=== PATIENT | female | born 1925 | race Caucasian/White ===

== ENCOUNTER → 2016-07-20 | Outpatient (CLI) | payer OTHER ==
[~2016-07-20] MED LIST: ERGO1CAP35 PO; GLC500 PO; KFL500 PO; ROSU5TAB PO
--- NOTE | 2016-07-20 10:13 | DIAGNOSTIC IMAGING REPORT ---
RIGHT KNEE 1 OR 2 VIEWS ROUTINE CLINICAL HISTORY: M19.90,M25.561 RIGHT KNEE PAIN Right pain COMPARISON: None. DISCUSSION: Severe degenerative change medial joint compartment. Moderate degenerative change patellofemoral joint. 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 Lateral joint compartment generally well preserved. Soft tissue vascular calcifications. There is no evidence for soft tissue swelling. 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 Electronically signed by: Juan Osman M.D. 07/20/2016 10:11 AM Dictated Date/Time: 07/20/2016 10:11 AM
== END | disposition home or self-care (01) ==
LOC: C.RADBC 09:42
PROVIDERS: ATTEND Nurse Practitioner
DX: M25.561 Pain in right knee (principal); M17.11 Unilateral primary osteoarthritis, right knee

== ENCOUNTER 2016-10-21 17:04 | Inpatient (IN) | payer OTHER ==
[~2016-10-21] VITALS: Ht 160 cm; Wt 25.4 kg
[~2016-10-21 17:04] MED LIST changes: -KFL500 PO
[2016-10-21] MEDS ORDERED: SODIUM CHLORIDE 0.9% 1000ML 1,000 ML IV STA (17:30)
--- NOTE | 2016-10-21 17:47 | DIAGNOSTIC IMAGING REPORT ---
CHEST ONE VIEW PORTABLE CLINICAL HISTORY: Weakness COMPARISON STUDY: No previous studies for comparison. FINDINGS: The heart is normal in size. There is no lobar consolidation. There are no pleural effusions. There is mild interstitial thickening with a slight basilar predominance. This is age-indeterminate. Increased markings in the right suprahilar region, likely representing a summation with the right first costochondral cartilage.[ IMPRESSION: AP portable study. Mild interstitial thickening, finding of uncertain chronicity. No evidence of lobar consolidation. No evidence of congestive heart failure. Electronically signed by: Socrates Peres M.D. 10/21/2016 5:46 PM Dictated Date/Time: 10/21/2016 5:45 PM
[2016-10-21] MEDS ORDERED: SODIUM CHLORIDE 0.9% 500ML 500 ML IV STA (18:17)
[2016-10-21] MEDS ORDERED: ACETAMINOPHEN 500 MG TAB PO STA (18:17)
[2016-10-21 18:26] LABS: BASO % 0.1 %; BASO ABS # 0.01 K/uL (0-0.2); COMPLETE YES; EOS % 0.3 %; HEMATOCRIT 35.2 % (37-47); IG% 0.3 %; LYMPH % 18.5 %; LYMPH ABS # 1.41 K/uL (1.2-3.4); MEAN CELL VOLUME 89.6 fL (80-100); MEAN CORPUSCULAR HEMOGLOBIN 30.5 pg (25-34); MEAN CORPUSCULAR HGB CONC 34.1 g/dl (32-36); MEAN PLATELET VOLUME 8.7 fL (7.4-10.4); MONO % 10.4 %; NEUT % 70.4 %; PLATELET COUNT 262 K/uL (130-400); RED BLOOD COUNT 3.93 M/uL (4.2-5.4); WHITE BLOOD COUNT 7.62 K/uL (4.8-10.8)
[2016-10-21 18:38] LABS: BLOOD UREA NITROGEN 15 mg/dl (7-18); BUN/CREATININE RATIO 22.7 (10-20); CARBON DIOXIDE 26 mmol/L (21-32); CHLORIDE 105 mmol/L (98-107); CREATININE 0.67 mg/dl (0.60-1.20); GLUCOSE 143 mg/dl (70-99); SODIUM 139 mmol/L (136-145)
[2016-10-21 18:41] LABS: INR 1.2 (0.9-1.1)
[2016-10-21 18:49] LABS: ALKALINE PHOSPHATASE 95 U/L (45-117); ALT/SGPT 23 U/L (12-78); AST/SGOT 19 U/L (15-37); THYROID STIMULATING HORMONE < 0.005 uIu/ml (0.300-4.500)
[2016-10-21 19:05] LABS: URINE APPEARANCE TURBID (CLEAR); URINE BILIRUBIN NEG (NEG); URINE COLOR YELLOW; URINE NITRITE POS (NEG); URINE PH 5.5 (4.5-7.5); URINE SPECIFIC GRAVITY 1.018 (1.000-1.030); UROBILINOGEN NEG (NEG)
[2016-10-21 19:07] LABS: MANUAL MICROSCOPIC REQUIRED? NO; REVIEW REQ? NO
[2016-10-21] MEDS ORDERED: CEFTRIAXONE SOD INJ 1 GM ADDVIAL IV STA (19:22)
[2016-10-21] MEDS ORDERED: MAGNESIUM HYDROXIDE SUSP 30 ML UDC PO PRN (20:00)
[2016-10-21] MEDS ORDERED: LORAZEPAM 2 MG/ML 1 ML VIAL IV PRN (20:00)
[2016-10-21] MEDS ORDERED: ONDANSETRON INJ 2 MG/ML 2 ML VIAL IV PRN (20:00)
[2016-10-21] MEDS ORDERED: POLYETHYLENE (MIRALAX) 17 GM PACK PO PRN (20:00)
[2016-10-21] MEDS ORDERED: ALUMINUM/MAGNESIUM/SIMETH (MAALOX MAX) 30 ML UDC PO PRN (20:00)
--- NOTE | 2016-10-21 20:10 | History and Physical ---
History & Physical Date & Time of Service: Oct 21, 2016 at 19:59 Chief Complaint: Bowel Potrusion, Bitter Taste In Mouth Primary Care Physician: No Doctor, Assigned History of Present Illness Source: patient 89 y/o F Hx HPL, hemorrhoids with chronic rectal bleeding. Pt has become week, confused and febrile over the last 2 days. Her also noted some rectal bleeding but this has been an ongoing intermittent issue. She does not exhibit distress but cannot reliably contribute to the HPI. There were no reports of CP , SOB, N/V or significant dysuria. Her USA is strongly positive. Past Medical/Surgical History Medical Problems: (1) Hypertension Status: Chronic Surgical Problems: (1) H/O: hysterectomy Status: Resolved Family History Patient reports no known family medical history. Noncontributory due to pt age Social History Lives independently with Smoking Status: Never Smoker Marital Status: Multi-Drug Resistant Organisms History of MDRO: No Allergies Coded Allergies: No Known Drug Allergy (Verified Allergy, `, 02/02/11) Home Medications Scheduled Rosuvastatin Calcium (Crestor), 5 MG PO DAILY Review of Systems Pt cannot provide ROS - brought in for AMS, weakness, fevers. Physical Exam Vital Signs Date Time Temp Pulse Resp B/P (MAP) Pulse Ox O2 Delivery O2 Flow Rate FiO2 10/21/16 19:37 75 18 143/64 93 Room Air 10/21/16 18:12 80 10/21/16 18:05 38.2 79 22 147/67 93 Room Air 10/21/16 18:03 93 Room Air 10/21/16 17:09 38.3 87 18 158/66 97 Room Air General Appearance: WD/WN Head: normocephalic, atraumatic Eyes: normal inspection, EOMI ENT: normal ENT inspection, pharynx normal Neck: supple, no JVD Respiratory/Chest: chest non-tender, lungs clear, normal breath sounds, no respiratory distress, no accessory muscle use Cardiovascular: regular rate, rhythm, no edema, no gallop, no JVD, no murmur, normal peripheral pulses Abdomen/GI: normal bowel sounds, non tender, soft, + abnormal rectal exam ( hemorrhoids present per ER exam) Back: normal inspection, no CVA tenderness, no muscle spasm, normal range of motion Extremities/Musculoskelatal: normal inspection, no calf tenderness, normal capillary refill, no pedal edema, normal range of motion Neurologic/Psych: no motor/sensory deficits, alert Skin: normal color, warm/dry, no rash Diagnostics Laboratory Results Results Past 24 Hours Test 10/21/16 18:10 10/21/16 18:17 10/21/16 18:25 10/21/16 19:39 Range/Units White Blood Count 7.62 4.8-10.8 K/uL Red Blood Count 3.93 4.2-5.4 M/uL Hemoglobin 12.0 12.0-16.0 g/dL Hematocrit 35.2 37-47 % Mean Corpuscular Volume 89.6 80-100 fL Mean Corpuscular Hemoglobin 30.5 25-34 pg Mean Corpuscular Hemoglobin Concent 34.1 32-36 g/dl Platelet Count 262 130-400 K/uL Mean Platelet Volume 8.7 7.4-10.4 fL Neutrophils (%) (Auto) 70.4 % Lymphocytes (%) (Auto) 18.5 % Monocytes (%) (Auto) 10.4 % Eosinophils (%) (Auto) 0.3 % Basophils (%) (Auto) 0.1 % Neutrophils # (Auto) 5.37 1.4-6.5 K/uL Lymphocytes # (Auto) 1.41 1.2-3.4 K/uL Monocytes # (Auto) 0.79 0.11-0.59 K/uL Eosinophils # (Auto) 0.02 0-0.5 K/uL Basophils # (Auto) 0.01 0-0.2 K/uL RDW Standard Deviation 40.9 36.4-46.3 fL RDW Coefficient of Variation 12.5 11.5-14.5 % Immature Granulocyte % (Auto) 0.3 % Immature Granulocyte # (Auto) 0.02 0.00-0.02 K/uL Prothrombin Time 13.0 9.0-12.0 SECONDS Prothromb Time International Ratio 1.2 0.9-1.1 Activated Partial Thromboplast Time 25.0 21.0-31.0 SECONDS Partial Thromboplastin Ratio 1.0 Sodium Level 139 136-145 mmol/L Potassium Level 4.0 3.5-5.1 mmol/L Chloride Level 105 98-107 mmol/L Carbon Dioxide Level 26 21-32 mmol/L Anion Gap 8.0 3-11 mmol/L Blood Urea Nitrogen 15 7-18 mg/dl Creatinine 0.67 0.60-1.20 mg/dl Est Creatinine Clear Calc Drug Dose 51.6 ml/min Estimated GFR () 90.3 Estimated GFR (Non- 77.9 BUN/Creatinine Ratio 22.7 10-20 Random Glucose 143 70-99 mg/dl Calcium Level 9.0 8.5-10.1 mg/dl Magnesium Level 2.0 1.8-2.4 mg/dl Total Bilirubin 0.6 0.2-1 mg/dl Direct Bilirubin 0.2 0-0.2 mg/dl Aspartate Amino Transf (AST/SGOT) 19 15-37 U/L Alanine Aminotransferase (ALT/SGPT) 23 12-78 U/L Alkaline Phosphatase 95 45-117 U/L Troponin I < 0.015 0-0.045 ng/ml Total Protein 7.4 6.4-8.2 gm/dl Albumin 3.0 3.4-5.0 gm/dl Lipase 218 73-393 U/L Thyroid Stimulating Hormone (TSH) < 0.005 0.300-4.500 uIu/ml Free Thyroxine 1.67 0.80-1.60 ng/dl Free Triiodothyronine 4.10 2.30-4.20 pg/ml Bedside Lactic Acid Venous 0.86 0.58 0.90-1.70 mmol/L Urine Color YELLOW Urine Appearance TURBID CLEAR Urine pH 5.5 4.5-7.5 Urine Specific [place] 1.018 1.000-1.030 Urine Protein 1+ NEG Urine Glucose (UA) NEG NEG Urine Ketones NEG NEG Urine Occult Blood 2+ NEG Urine Nitrite POS NEG Urine Bilirubin NEG NEG Urine Urobilinogen NEG NEG Urine Leukocyte Esterase LARGE NEG Urine WBC (Auto) >30 0-5 /hpf Urine RBC (Auto) 5-10 0-4 /hpf Urine Hyaline Casts (Auto) 1-5 0-5 /lpf Urine Epithelial Cells (Auto) 5-10 0-5 /lpf Urine Bacteria (Auto) 4+ NEG Microbiology Results 10/21/16 Blood Culture, Received Pending 10/21/16 Blood Culture, Received Pending 10/21/16 Urine Culture, Received Pending CXR normal Normal EKG Impression Assessment and Plan 89 y/o F Hx HPL, hemorrhoids with chronic rectal bleeding. Pt has become week, confused and febrile over the last 2 days. Her also noted some rectal bleeding but this has been an ongoing intermittent issue. She does not exhibit distress but cannot reliably contribute to the HPI. There were no reports of CP , SOB, N/V or significant dysuria. Her USA is strongly positive. 1) UTI - delirium/AMS - pt will be treated with Ceftriaxone, IVF and PRN low dose sedatives initially. Urine culture is pending. No evidence of additional or alternative focus of infection presently. 2) Rectal bleeding - does not appear significant - Hb will be trended 3) HPL - cont Crestor Level of Care Med/Surg Resuscitation Status FULL RESUSCITATION VTE Prophylaxis VTE Risk Assessment Done? Y/N: Yes Risk Level: Moderate Given or contraindicated: SCD's
[2016-10-21 20:30] VITALS: O2SAT 93
[2016-10-21 20:45] VITALS: Ht 160 cm; Wt 25.4 kg
[2016-10-21] MEDS ORDERED: LORAZEPAM INJ 0.25 MG in SYRINGE 0.125 ML IV PRN (21:15)
[2016-10-21] MEDS ORDERED: SODIUM CHLORIDE 0.9% 1000ML 1,000 ML IV SCH (21:15)
--- NOTE | 2016-10-21 22:01 | EMERGENCY ROOM VISIT NOTE ---
History Report prepared by Jalen: Destiny Ng Under the Supervision of: Dr. Crescencio Braga M.D. First contact with patient: 17:30 Chief Complaint: RECTAL PAIN Stated Complaint: BOWEL POTRUSION, BITTER TASTE IN MOUTH Nursing Triage Summary: Reports chronic hemorrhoids. Having company this weekend and states that wanted to get it checked out and be more comfortable. States has small amount of blood when having a bowel movement. Denies pain at present. History of Present Illness The patient is a 89 year old female who presents to the Emergency Room with complaints of rectal bleeding starting a few days ago. She has a history of chronic hemorrhoids. She has been having a small amount of blood when having a bowel movement. She feels as though she has to have a bowel movement even when she is finished with it. She currently denies any rectal pain. She has not yet tried Preparation H. The patient also complains of fevers and chills. As per , the patient has been having increased tiredness and weakness for the past few days. Pt denies LOC, headache, cough, diaphoresis, visual changes, neck pain, chest pain, breathing difficulties, nausea, vomiting, abdominal pain , back pain, melena, hematochezia, urinary symptoms, numbness, weakness, lymphadenopathy, rash, or other complaints. She has chronic pain around the left shoulder blade but denies any changes. Source of History: patient, spouse/significant other Onset: a few days ago Position: other (global) Symptom Intensity: No rectal pain Quality: other (rectal bleeding) Associated Symptoms: + fevers, + chills Review of Systems See HPI for pertinent positives and negatives. A total of ten systems were reviewed and were otherwise negative. Past Medical & Surgical Medical Problems: (1) Altered mental status (2) Hypertension (3) UTI (urinary tract infection) Surgical Problems: (1) H/O: hysterectomy Family History Patient reports no known family medical history. Social History Smoking Status: Never Smoker Alcohol Use: none Marital Status: Housing Status: lives with significant other Current/Historical Medications Scheduled Rosuvastatin Calcium (Crestor), 5 MG PO DAILY Allergies Coded Allergies: No Known Drug Allergy (Verified Allergy, `, 02/02/11) Physical Exam Vital Signs Date Time Temp Pulse Resp B/P (MAP) Pulse Ox O2 Delivery O2 Flow Rate FiO2 10/21/16 19:37 37.3 75 18 143/64 93 Room Air 10/21/16 18:12 80 10/21/16 18:05 38.2 79 22 147/67 93 Room Air 10/21/16 18:03 93 Room Air 10/21/16 17:09 38.3 87 18 158/66 97 Room Air Physical Exam GENERAL: Awake, alert, well-appearing, in no distress HENT: Normocephalic, atraumatic. Oropharynx unremarkable. EYES: Normal conjunctiva. Sclera non-icteric. NECK: Supple. No nuchal rigidity. FROM. No JVD. RESPIRATORY: Clear to auscultation. CARDIAC: Regular rate, normal rhythm. Extremities warm and well perfused. Pulses equal. ABDOMEN: Soft, non-distended. No tenderness to palpation. No rebound or guarding. No masses. RECTAL: Deferred. MUSCULOSKELETAL: Chest examination reveals no tenderness. Kyphotic back. There is no CVA tenderness to palpation. No joint edema. UPPER EXTREMITIES: Right shoulder tenderness without swelling or erythema, normal range of motion. LOWER EXTREMITIES: Calves are equal size bilaterally and non-tender. Trace lower extremity edema. No discoloration. NEURO: Normal sensorium. No sensory or motor deficits noted. SKIN: No rash or jaundice noted. Medical Decision & Procedures ER Provider Diagnostic Interpretation: X-ray: Per my interpretation, radiologist review. CHEST ONE VIEW PORTABLE CLINICAL HISTORY: Weakness COMPARISON STUDY: No previous studies for comparison. FINDINGS: The heart is normal in size. There is no lobar consolidation. There are no pleural effusions. There is mild interstitial thickening with a slight basilar predominance. This is age-indeterminate. Increased markings in the right suprahilar region, likely representing a summation with the right first costochondral cartilage.[ IMPRESSION: AP portable study. Mild interstitial thickening, finding of uncertain chronicity. No evidence of lobar consolidation. No evidence of congestive heart failure. Electronically signed by: Socrates Peres M.D. 10/21/2016 5:46 PM Dictated Date/Time: 10/21/2016 5:45 PM Laboratory Results 10/21/16 18:10 Red Blood Count 3.93, Mean Corpuscular Volume 89.6, Mean Corpuscular Hemoglobin 30.5, Mean Corpuscular Hemoglobin Concent 34.1, Mean Platelet Volume 8.7, Neutrophils (%) (Auto) 70.4, Lymphocytes (%) (Auto) 18.5, Monocytes (%) (Auto) 10.4, Eosinophils (%) (Auto) 0.3, Basophils (%) (Auto) 0.1, Neutrophils # (Auto ) 5.37, Lymphocytes # (Auto) 1.41, Monocytes # (Auto) 0.79, Eosinophils # (Auto ) 0.02, Basophils # (Auto) 0.01 10/21/16 18:10 Test 10/21/16 18:10 10/21/16 18:25 10/21/16 19:39 White Blood Count 7.62 K/uL (4.8-10.8) Red Blood Count 3.93 M/uL (4.2-5.4) Hemoglobin 12.0 g/dL (12.0-16.0) Hematocrit 35.2 % (37-47) Mean Corpuscular Volume 89.6 fL (80-100) Mean Corpuscular Hemoglobin 30.5 pg (25-34) Mean Corpuscular Hemoglobin Concent 34.1 g/dl (32-36) Platelet Count 262 K/uL (130-400) Mean Platelet Volume 8.7 fL (7.4-10.4) Neutrophils (%) (Auto) 70.4 % Lymphocytes (%) (Auto) 18.5 % Monocytes (%) (Auto) 10.4 % Eosinophils (%) (Auto) 0.3 % Basophils (%) (Auto) 0.1 % Neutrophils # (Auto) 5.37 K/uL (1.4-6.5) Lymphocytes # (Auto) 1.41 K/uL (1.2-3.4) Monocytes # (Auto) 0.79 K/uL (0.11-0.59) Eosinophils # (Auto) 0.02 K/uL (0-0.5) Basophils # (Auto) 0.01 K/uL (0-0.2) RDW Standard Deviation 40.9 fL (36.4-46.3) RDW Coefficient of Variation 12.5 % (11.5-14.5) Immature Granulocyte % (Auto) 0.3 % Immature Granulocyte # (Auto) 0.02 K/uL (0.00-0.02) Prothrombin Time 13.0 SECONDS (9.0-12.0) Prothromb Time International Ratio 1.2 (0.9-1.1) Activated Partial Thromboplast Time 25.0 SECONDS (21.0-31.0) Partial Thromboplastin Ratio 1.0 Anion Gap 8.0 mmol/L (3-11) Est Creatinine Clear Calc Drug Dose 51.6 ml/min Estimated GFR () 90.3 Estimated GFR (Non- 77.9 BUN/Creatinine Ratio 22.7 (10-20) Calcium Level 9.0 mg/dl (8.5-10.1) Magnesium Level 2.0 mg/dl (1.8-2.4) Total Bilirubin 0.6 mg/dl (0.2-1) Direct Bilirubin 0.2 mg/dl (0-0.2) Aspartate Amino Transf (AST/SGOT) 19 U/L (15-37) Alanine Aminotransferase (ALT/SGPT) 23 U/L (12-78) Alkaline Phosphatase 95 U/L (45-117) Troponin I < 0.015 ng/ml (0-0.045) Total Protein 7.4 gm/dl (6.4-8.2) Albumin 3.0 gm/dl (3.4-5.0) Lipase 218 U/L (73-393) Thyroid Stimulating Hormone (TSH) < 0.005 uIu/ml (0.300-4.500) Free Thyroxine 1.67 ng/dl (0.80-1.60) Free Triiodothyronine 4.10 pg/ml (2.30-4.20) Urine Color YELLOW Urine Appearance TURBID (CLEAR) Urine pH 5.5 (4.5-7.5) Urine Specific [place] 1.018 (1.000-1.030) Urine Protein 1+ (NEG) Urine Glucose (UA) NEG (NEG) Urine Ketones NEG (NEG) Urine Occult Blood 2+ (NEG) Urine Nitrite POS (NEG) Urine Bilirubin NEG (NEG) Urine Urobilinogen NEG (NEG) Urine Leukocyte Esterase LARGE (NEG) Urine WBC (Auto) >30 /hpf (0-5) Urine RBC (Auto) 5-10 /hpf (0-4) Urine Hyaline Casts (Auto) 1-5 /lpf (0-5) Urine Epithelial Cells (Auto) 5-10 /lpf (0-5) Urine Bacteria (Auto) 4+ (NEG) Bedside Lactic Acid Venous 0.58 mmol/L (0.90-1.70) Laboratory results reviewed by me Medications Administered Medications (Trade) Dose Ordered Sig/Sruthi Route Start Time Stop Time Status Last Admin Dose Admin Sodium Chloride 1,000 ml @ 125 mls/hr Q8H STAT IV 10/21/16 17:30 10/21/16 21:04 DC 10/21/16 18:18 125 MLS/HR Sodium Chloride 500 ml @ 999 mls/hr Q31M STAT IV 10/21/16 18:17 10/21/16 18:47 DC 10/21/16 18:18 999 MLS/HR Acetaminophen (Tylenol Tab) 1,000 mg NOW STAT PO 10/21/16 18:17 10/21/16 18:18 DC 10/21/16 18:33 1,000 MG Ceftriaxone Sodium (Rocephin Inj) 1 gm NOW STAT IV 10/21/16 19:22 10/21/16 19:23 DC 10/21/16 19:36 1 GM ECG Indication: weakness Rate (beats per minute): 80 Rhythm: normal sinus Findings: no acute ischemic change, no ectopy ED Course 1729: The patient was evaluated in room B07. A complete history and physical exam was performed. Sodium Chloride 1000 ml @ 125 mls/hr IV Medication Reconciliation: I attest that I have personally reviewed the patient' s current medication list Blood pressure screening: Patient was found to have an elevated blood pressure and was referred to their primary doctor for recheck and further treatment. 1816: Tylenol Tab 1000 mg PO, Sodium Chloride 500 ml @ 999 mls/hr IV 1919: Upon reexamination, the patient was resting comfortably. The patient's reported that the patient was not doing great all day at home today and she was somewhat confused. I discussed the test results and treatment plan with the patient and her . The patient will be evaluated for further management. 1921: Rocephin Inj 1 gm IV. 1945: [facility] the [facility] Medical Decision Triage Nursing notes reviewed. The patient's presentation and history were concerning for fever and rectal symptoms. Etiologies such as hemorrhoids, prolapse, which abdominal process, viral syndrome, otitis, pharyngitis, pneumonia, urinary tract infection, sepsis, bacteremia, as well as others were entertained. The patient was evaluated. She was febrile. She was given Tylenol. Fluids were initiated. Blood work and urinalysis by catheter specimen was obtained. The patient's states that she wasn't doing well at home today and he was somewhat concerned given her decline. The patient had an unremarkable CBC and chemistry panel. Her urinalysis was very concerning for infection. The patient was reassessed and was doing somewhat better although will benefit from treatment in the hospital. She was given IV Rocephin. Serum lactate was unremarkable. The patient's rectal examination revealed minimal hemorrhoid disease. There is no prolapse, perirectal abscess, or thrombosed hemorrhoid. Minimal hemorrhoidal disease and urinary tract infection. Be the main problems. Consultation was made with internal medicine. The patient was evaluated in the Emergency Room for further treatment. Consults Time Called: 1921 Consulting Physician: Dr. Castillo, from [facility] Returned Call: 1945 I discussed the patient's case with Dr. Castillo, from [facility]. Impression Primary Impression: Fever Additional Impressions: UTI (urinary tract infection) Weakness Scribe Attestation The scribe's documentation has been prepared under my direction and personally reviewed by me in its entirety. I confirm that the note above accurately reflects all work, treatment, procedures, and medical decision making performed by me. Departure Information Dispostion Being Evaluated By Hospitalist Referrals Crescencio Reid III, M.D. (PCP) Patient Instructions My [facility] Problem Qualifiers
[2016-10-22 00:06] VITALS: BP 161/68; PULSE 70; TEMP 36.9; O2SAT 94
[2016-10-22] MEDS ORDERED: PNEUMOCOCCAL ADMINISTRATION CHARGE ONE (08:00)
[2016-10-22] MEDS ORDERED: PNEUMOCOCCAL POLYSACCHARIDES 25 MCG/0.5 ML VIAL/SYR IM. ONE (08:00)
[2016-10-22 08:22] VITALS: BP 151/69; PULSE 75; TEMP 36.9; O2SAT 96
[2016-10-22] MEDS: ROSUVASTATIN CALCIUM 5 MG TAB PO SCH (08:51)
[2016-10-22 09:01] LABS: BUN/CREATININE RATIO 17.3 (10-20); CREATININE 0.55 mg/dl (0.60-1.20); MAGNESIUM 1.8 mg/dl (1.8-2.4); POTASSIUM 3.3 mmol/L (3.5-5.1)
[2016-10-22 09:33] LABS: CALCIUM 8.6 mg/dl (8.5-10.1)
[2016-10-22 09:55] LABS: BASO % 0.1 %; BASO ABS # 0.01 K/uL (0-0.2); COMPLETE YES; EOS % 0.3 %; HEMATOCRIT 32.4 % (37-47); IG% 0.1 %; LYMPH % 11.2 %; LYMPH ABS # 0.86 K/uL (1.2-3.4); MEAN CELL VOLUME 89.3 fL (80-100); MEAN CORPUSCULAR HEMOGLOBIN 30.3 pg (25-34); MEAN PLATELET VOLUME 8.8 fL (7.4-10.4); MONO % 9.4 %; NEUT % 78.9 %; PLATELET COUNT 241 K/uL (130-400); RED BLOOD COUNT 3.63 M/uL (4.2-5.4); WHITE BLOOD COUNT 7.66 K/uL (4.8-10.8)
--- NOTE | 2016-10-22 11:23 | Progress Note ---
Subjective Date of Service: Oct 22, 2016. Subjective Pt evaluation today including: conversation w/ patient, conversation w/ family , physical exam, chart review, lab review, review of studies, conversation w/ mobile sales consultant, review of inpatient medication list Pleasant, confused, reported mild right shoulder pain, and then report mild posterior headache No other complaint Problem List Medical Problems: (1) Fever Status: Acute (2) Weakness Status: Acute Review of Systems Constitutional: + problem reported (possible not reliable because patient dementia), No fever, No chills, No sweats, No weight loss, No weakness, No fatigue Eyes: No worsening of vision, No eye pain, No redness, No discharge, No diplopia ENT: No hearing loss, No unusual epistaxis, No nasal symptoms, No sore throat, No tinnitus, No dental problems, No trouble swallowing Respiratory: No cough, No sputum, No wheezing, No shortness of breath, No dyspnea on exertion, No dyspnea at rest, No hemoptysis Cardiac: No chest pain, No orthopnea, No PND, No edema, No claudication, No palpitations Abdomen: No pain, No nausea, No vomiting, No diarrhea, No constipation Musculoskeletal: + joint pain, No muscle pain, No swelling, No calf pain Female : No dysuria, No urinary frequency, No hematuria, No incontinence, No abnormal vaginal bleeding, No vaginal discharge Neurologic: No memory loss, No paralysis, No weakness, No numbness/tingling, No vertigo, No balance problems Psychiatric: No depression symptoms, No anhedonism, No anxiety, No insomnia, No substance abuse Heme: No abnormal bleeding/bruising, No clotting problems, No swollen lymph nodes, No night sweats Endo: No fatigue, No excessive thirst, No excessive urination Skin: No rash, No itch, No new/changing skin lesions, No color change, No bleeding Objective Vital Signs Date Time Temp Pulse Resp B/P (MAP) Pulse Ox O2 Delivery O2 Flow Rate FiO2 10/22/16 08:22 36.9 75 18 151/69 (96) 96 Room Air 10/22/16 08:00 Room Air 10/22/16 00:06 36.9 70 18 161/68 (99) 94 Room Air 10/22/16 00:00 Room Air 10/21/16 20:45 Room Air 10/21/16 20:30 71 20 141/70 93 Room Air 10/21/16 19:37 37.3 75 18 143/64 93 Room Air 10/21/16 18:12 80 10/21/16 18:05 38.2 79 22 147/67 93 Room Air 10/21/16 18:03 93 Room Air 10/21/16 17:09 38.3 87 18 158/66 97 Room Air Physical Exam General Appearance: WD/WN, no apparent distress, + pertinent finding (head atraumatic) Eyes: normal inspection, PERRL, EOMI, sclerae normal ENT: normal ENT inspection, hearing grossly normal, pharynx normal Neck: supple, no adenopathy, thyroid normal, no JVD, no carotid bruits, trachea midline Respiratory/Chest: chest non-tender, normal breath sounds, no respiratory distress, no accessory muscle use, + decreased breath sounds Cardiovascular: regular rate, rhythm, no edema, no gallop, no JVD, no murmur Abdomen: normal bowel sounds, non tender, soft, no organomegaly, no pulsatile mass Extremities: non-tender, normal inspection, no pedal edema, no calf tenderness , normal capillary refill, pelvis stable, + pertinent finding (right shoulder mild limited range of motion because of pain, there was no local erythema/ red or tender) 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, no motor/sensory deficits, alert, normal mood/affect, oriented x 3 Skin: normal color, warm/dry, no rash Lymphatic: no adenopathy Laboratory Results Last 24 Hours Test 10/21/16 18:10 10/21/16 18:17 10/21/16 18:25 10/21/16 19:39 White Blood Count 7.62 K/uL Red Blood Count 3.93 M/uL Hemoglobin 12.0 g/dL Hematocrit 35.2 % Mean Corpuscular Volume 89.6 fL Mean Corpuscular Hemoglobin 30.5 pg Mean Corpuscular Hemoglobin Concent 34.1 g/dl Platelet Count 262 K/uL Mean Platelet Volume 8.7 fL Neutrophils (%) (Auto) 70.4 % Lymphocytes (%) (Auto) 18.5 % Monocytes (%) (Auto) 10.4 % Eosinophils (%) (Auto) 0.3 % Basophils (%) (Auto) 0.1 % Neutrophils # (Auto) 5.37 K/uL Lymphocytes # (Auto) 1.41 K/uL Monocytes # (Auto) 0.79 K/uL Eosinophils # (Auto) 0.02 K/uL Basophils # (Auto) 0.01 K/uL RDW Standard Deviation 40.9 fL RDW Coefficient of Variation 12.5 % Immature Granulocyte % (Auto) 0.3 % Immature Granulocyte # (Auto) 0.02 K/uL Prothrombin Time 13.0 SECONDS Prothromb Time International Ratio 1.2 Activated Partial Thromboplast Time 25.0 SECONDS Partial Thromboplastin Ratio 1.0 Sodium Level 139 mmol/L Potassium Level 4.0 mmol/L Chloride Level 105 mmol/L Carbon Dioxide Level 26 mmol/L Anion Gap 8.0 mmol/L Blood Urea Nitrogen 15 mg/dl Creatinine 0.67 mg/dl Est Creatinine Clear Calc Drug Dose 51.6 ml/min Estimated GFR () 90.3 Estimated GFR (Non- 77.9 BUN/Creatinine Ratio 22.7 Random Glucose 143 mg/dl Calcium Level 9.0 mg/dl Magnesium Level 2.0 mg/dl Total Bilirubin 0.6 mg/dl Direct Bilirubin 0.2 mg/dl Aspartate Amino Transf (AST/SGOT) 19 U/L Alanine Aminotransferase (ALT/SGPT) 23 U/L Alkaline Phosphatase 95 U/L Troponin I < 0.015 ng/ml Total Protein 7.4 gm/dl Albumin 3.0 gm/dl Lipase 218 U/L Thyroid Stimulating Hormone (TSH) < 0.005 uIu/ml Free Thyroxine 1.67 ng/dl Free Triiodothyronine 4.10 pg/ml Bedside Lactic Acid Venous 0.86 mmol/L 0.58 mmol/L Urine Color YELLOW Urine Appearance TURBID Urine pH 5.5 Urine Specific Thayer 1.018 Urine Protein 1+ Urine Glucose (UA) NEG Urine Ketones NEG Urine Occult Blood 2+ Urine Nitrite POS Urine Bilirubin NEG Urine Urobilinogen NEG Urine Leukocyte Esterase LARGE Urine WBC (Auto) >30 /hpf Urine RBC (Auto) 5-10 /hpf Urine Hyaline Casts (Auto) 1-5 /lpf Urine Epithelial Cells (Auto) 5-10 /lpf Urine Bacteria (Auto) 4+ Test 10/22/16 08:25 10/22/16 08:35 10/22/16 09:28 Sodium Level 141 mmol/L Potassium Level 3.3 mmol/L Chloride Level 107 mmol/L Carbon Dioxide Level 27 mmol/L Anion Gap 7.0 mmol/L Blood Urea Nitrogen 10 mg/dl Creatinine 0.55 mg/dl Est Creatinine Clear Calc Drug Dose 27.8 ml/min Estimated GFR () 96.4 Estimated GFR (Non- 83.2 BUN/Creatinine Ratio 17.3 Random Glucose 133 mg/dl Calcium Level 8.6 mg/dl Magnesium Level 1.8 mg/dl Stool Occult Blood NEGATIVE White Blood Count 7.66 K/uL Red Blood Count 3.63 M/uL Hemoglobin 11.0 g/dL Hematocrit 32.4 % Mean Corpuscular Volume 89.3 fL Mean Corpuscular Hemoglobin 30.3 pg Mean Corpuscular Hemoglobin Concent 34.0 g/dl Platelet Count 241 K/uL Mean Platelet Volume 8.8 fL Neutrophils (%) (Auto) 78.9 % Lymphocytes (%) (Auto) 11.2 % Monocytes (%) (Auto) 9.4 % Eosinophils (%) (Auto) 0.3 % Basophils (%) (Auto) 0.1 % Neutrophils # (Auto) 6.04 K/uL Lymphocytes # (Auto) 0.86 K/uL Monocytes # (Auto) 0.72 K/uL Eosinophils # (Auto) 0.02 K/uL Basophils # (Auto) 0.01 K/uL RDW Standard Deviation 40.6 fL RDW Coefficient of Variation 12.6 % Immature Granulocyte % (Auto) 0.1 % Immature Granulocyte # (Auto) 0.01 K/uL Assessment and Plan 89 y/o F admitted on 10/21/2016 because of altered mental status secondary to UTI Possible chronic rectal bleeding with Hx HPL, hemorrhoids with chronic rectal bleeding. I did rectal exam with nurse , no obvious hemorrhoid There was no blood in the glove Stool was brown Stool Hemoccult sample was sent Because rectal bleeding etiology unknown, requested GI consult UTI febrile over the last 2 days prior to admission. delirium/AMS prior to admission Possible metabolic encephalopathy from UTI Continue antibiotics Follow up urine culture HPL - cont Crestor Right shoulder pain,, will continue watch, Tylenol as needed, follow-up with PCP if needed [facility] full code Will discussed with about care plan We'll order PT OT social and human services assistant consult Continued [facility] stay due to: multiple IV medications needed Discharge planning: home
--- NOTE | 2016-10-22 12:30 | GASTROINTESTINAL CONSULTATION ---
DATE OF CONSULTATION: 10/22/2016 DATE OF CONSULTATION: 10/22/2016. REQUESTING PHYSICIAN: Dr. Vale. CHIEF COMPLAINT: Confusion. HISTORY OF PRESENT ILLNESS: The patient is a very poor historian. Historical details were obtained by talking with the patient and reviewing the chart. The patient is an 89-year-old female who was brought in by her family for evaluation of weakness, confusion and febrile illness over 48 hours. The patient was admitted and felt to have urosepsis. The family reported intermittent bright red blood from the rectum which has been ongoing for many years. During today's evaluation the patient is unable to give any historical information and no family is present. The hospitalist did do a rectal examination notable for no evidence of external hemorrhoids and heme negative stool per the nursing staff. The patient has not had a reported colonoscopy in the past. PAST MEDICAL HISTORY: Hypertension. PAST SURGICAL HISTORY: Hysterectomy. FAMILY HISTORY: No family history of colorectal cancer. SOCIAL HISTORY: The patient lives with her , is a nonsmoker. . ALLERGIES: No drug allergies. OUTPATIENT MEDICATIONS: Crestor 5 mg at bedtime. REVIEW OF SYSTEMS: Unable to attempt due to patient's mental status today. PHYSICAL EXAMINATION: VITAL SIGNS: Temperature is 36.9, pulse 75, respiratory rate 18, blood pressure is 151/69. HEAD, EYES, EARS, NOSE, AND THROAT: No scleral icterus noted. CARDIAC: Regular rhythm with a systolic ejection murmur heard. LUNGS: Clear to auscultation. ABDOMEN: Soft, nontender. EXTREMITIES: No edema noted. IMAGING: Chest x-ray dated 10/21/2016, mild interstitial thickening, no pneumonia noted. LABORATORY DATA: White blood cell count 7.6, hemoglobin is 11.0, hematocrit is 32.4, platelet count is 241. PT is 13, INR 1.2. Chemistry: Sodium is 141, potassium 3.3, BUN 7.0, creatinine is 0.55, AST 19, ALT 23, alkaline phosphatase 95, albumin 3.0. UA notable for positive leukocyte esterase, bacteria and occult blood. IMPRESSION: This is an 89-year-old female admitted with urosepsis. GI consulted due to an outpatient report of scant hematochezia with bowel movements. The patient is unable to give much historical information at this time and given her mental status and comorbidities, I am not certain that a colonoscopy would add much benefit to her at this point in time. If the family wishes we could consider colonoscopy. I would recommend that the hospitalist service discuss the question of procedure with the patient's family. RECOMMENDATIONS: contineu therapy for urosepsis. Ask family if elective colonoscopy desired Add miralax 17 gm per day Please call with any questions or concerns. Given the indication for the patients admition I will sign off for the present. If a colonoscopy is desired by the family please contact our service and we would be happy to help make the arrangements. GABRIELLE
[2016-10-22 15:47] VITALS: BP 123/68; PULSE 77; TEMP 37.7; O2SAT 95
[2016-10-22] MEDS ORDERED: CEFTRIAXONE SOD INJ 1 GM in DEXTROSE 5% ADD-VANTAGE 50ML 50 ML IV SCH (20:00)
--- NOTE | 2016-10-22 20:57 | DIAGNOSTIC IMAGING REPORT ---
THYROID ULTRASOUND CLINICAL HISTORY: Hypothyroidism. COMPARISON STUDY: None. TECHNIQUE: Sonography of the thyroid gland was performed. FINDINGS: The right thyroid lobe measures 3.9 x 2.3 x 2.2 cm and the left lobe measures 4.7 x 2.3 x 1.2 cm. The gland is heterogeneous with numerous cystic nodules within each thyroid lobe. These contain echogenic foci, several which have comet tail artifact. These favor colloid cysts. The largest is a 1.5 x 0.8 x 1.1 cm isthmus nodule. 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 None of these nodules meet criteria for biopsy. Electronically signed by: Aníbal Cantu M.D. 10/22/2016 8:55 PM Dictated Date/Time: 10/22/2016 8:53 PM
[2016-10-22] MEDS: ACETAMINOPHEN 325 MG TAB PO PRN (21:26)
[2016-10-23 00:42] VITALS: BP_SYST 132; BP_SYST 152; BP_DIAS 77; BP_DIAS 94; PULSE 71; PULSE 74; TEMP 36.3; TEMP 36.8; O2SAT 90; O2SAT 96
[2016-10-23 06:04] LABS: BASO % 0.2 %; BASO ABS # 0.01 K/uL (0-0.2); COMPLETE YES; EOS % 1.1 %; HEMATOCRIT 32.3 % (37-47); IG% 0.2 %; LYMPH % 20.8 %; LYMPH ABS # 1.37 K/uL (1.2-3.4); MEAN CELL VOLUME 90.5 fL (80-100); MEAN CORPUSCULAR HEMOGLOBIN 29.7 pg (25-34); MEAN CORPUSCULAR HGB CONC 32.8 g/dl (32-36); MONO % 11.6 %; NEUT % 66.1 %; PLATELET COUNT 231 K/uL (130-400); RED BLOOD COUNT 3.57 M/uL (4.2-5.4); WHITE BLOOD COUNT 6.58 K/uL (4.8-10.8)
[2016-10-23 06:37] LABS: BUN/CREATININE RATIO 20.8 (10-20); CALCIUM 8.5 mg/dl (8.5-10.1); CREATININE 0.49 mg/dl (0.60-1.20); POTASSIUM 3.5 mmol/L (3.5-5.1)
[2016-10-23 07:15] VITALS: BP 130/76; PULSE 63; TEMP 36.6; O2SAT 95
[2016-10-23] MEDS: ROSUVASTATIN CALCIUM 5 MG TAB PO SCH (08:19)
[2016-10-23] MEDS: ACETAMINOPHEN 325 MG TAB PO PRN (14:12)
[2016-10-23] MEDS ORDERED: CEPHALEXIN MONOHYDRATE 500 MG CAP PO ONE (15:09)
--- NOTE | 2016-10-23 15:15 | Hospitalist Progress Note ---
Hospitalist Progress Note Date of Service Oct 23, 2016. Subjective Pt evaluation today including: conversation w/ patient, physical exam, chart review, lab review, review of studies, review of inpatient medication list Patient seen and evaluated. No acute events overnight. Alert and oriented with intermittent confusion and bizarre comments. Participating in PT/OT services with recommendations for home with 24 hr care and HHS. Family updated by Dr. Vale via phone this AM. UCx growing largely pansensitive E. Coli (only resistance to Bactrim) with BCx NGTD Discussed with patient the thoughts of colonoscopy but she seemed confused and stated the intermittent hematochezia does not bother her and stated "its like a cold that never goes away" - this was discussed with family and can proceed as outpatient if warranted She expresses no other complaints Constitutional: No fever, No chills ENT: No sore throat, No trouble swallowing Respiratory: No cough, No shortness of breath Cardiovascular: No chest pain Abdomen: + GI bleeding (intermittent), No pain, No nausea, No vomiting, No diarrhea, No constipation Musculoskeletal: No calf pain Female : No dysuria Skin: No rash Medications Current Inpatient Medications Medications (Trade) Dose Ordered Sig/Sruthi Route Start Time Stop Time Status Last Admin Dose Admin Acetaminophen (Tylenol Tab) 650 mg Q4H PRN PO 10/21/16 20:00 11/20/16 19:59 10/23/16 14:12 650 MG Al Hydrox/Mg Hydrox/Simethicone (Maalox Max Susp) 15 ml Q4H PRN PO 10/21/16 20:00 11/20/16 19:59 Magnesium Hydroxide (Milk Of Magnesia Susp) 30 ml Q6H PRN PO 10/21/16 20:00 11/20/16 19:59 Polyethylene (Miralax Powder Packet) 17 gm DAILY PRN PO 10/21/16 20:00 11/20/16 19:59 Ondansetron HCl (Zofran Inj) 4 mg Q6H PRN IV 10/21/16 20:00 11/20/16 19:59 Rosuvastatin Calcium (Crestor Tab) 5 mg DAILY PO 10/22/16 08:00 11/21/16 08:59 10/23/16 08:19 5 MG Lorazepam 0.25 mg/ Syringe 0.25 ml @ 1 mls/min Q6H PRN IV 10/21/16 21:15 11/20/16 21:14 Cephalexin Monohydrate (Keflex Cap) 500 mg BID PO 10/23/16 20:00 10/28/16 19:59 UNV Cephalexin Monohydrate (Keflex Cap) 500 mg 1509 ONCE PO 10/23/16 15:09 10/23/16 15:10 UNV Objective Vital Signs Date Time Temp Pulse Resp B/P (MAP) Pulse Ox O2 Delivery O2 Flow Rate FiO2 10/23/16 08:00 Room Air 10/23/16 07:15 36.6 63 18 130/76 (94) 95 Room Air 10/23/16 00:42 36.3 71 16 132/94 (107) 96 Room Air 10/23/16 00:00 Room Air 10/22/16 20:00 Room Air 10/22/16 16:00 Room Air 10/22/16 15:47 37.7 77 18 123/68 (86) 95 Room Air Physical Exam General Appearance: WD/WN, no apparent distress Eyes: sclerae normal ENT: hearing grossly normal Neck: supple, no JVD, trachea midline Respiratory/Chest: lungs clear, normal breath sounds, no respiratory distress, no accessory muscle use Cardiovascular: regular rate, rhythm, no gallop, no murmur Abdomen: normal bowel sounds, non tender, soft Extremities: no pedal edema, no calf tenderness Neurologic/Psychiatric: alert, oriented x 3, + pertinent finding (intermittent confusion;bizarre comments) Skin: normal color, warm/dry Laboratory Results Last 24 Hours Test 10/23/16 05:38 White Blood Count 6.58 K/uL Red Blood Count 3.57 M/uL Hemoglobin 10.6 g/dL Hematocrit 32.3 % Mean Corpuscular Volume 90.5 fL Mean Corpuscular Hemoglobin 29.7 pg Mean Corpuscular Hemoglobin Concent 32.8 g/dl Platelet Count 231 K/uL Mean Platelet Volume 9.0 fL Neutrophils (%) (Auto) 66.1 % Lymphocytes (%) (Auto) 20.8 % Monocytes (%) (Auto) 11.6 % Eosinophils (%) (Auto) 1.1 % Basophils (%) (Auto) 0.2 % Neutrophils # (Auto) 4.36 K/uL Lymphocytes # (Auto) 1.37 K/uL Monocytes # (Auto) 0.76 K/uL Eosinophils # (Auto) 0.07 K/uL Basophils # (Auto) 0.01 K/uL RDW Standard Deviation 42.0 fL RDW Coefficient of Variation 12.6 % Immature Granulocyte % (Auto) 0.2 % Immature Granulocyte # (Auto) 0.01 K/uL Sodium Level 145 mmol/L Potassium Level 3.5 mmol/L Chloride Level 110 mmol/L Carbon Dioxide Level 26 mmol/L Anion Gap 9.0 mmol/L Blood Urea Nitrogen 10 mg/dl Creatinine 0.49 mg/dl Est Creatinine Clear Calc Drug Dose 31.2 ml/min Estimated GFR () 100.1 Estimated GFR (Non- 86.4 BUN/Creatinine Ratio 20.8 Random Glucose 141 mg/dl Calcium Level 8.5 mg/dl Magnesium Level 2.0 mg/dl Assessment and Plan 89 y/o F admitted on 10/21/2016 because of altered mental status secondary to UTI Metabolic Encephalopathy 2/2 UTI Likely Superimposed on Dementia: IMPROVING - Baseline unknown but is oriented but has intermittent confusion and bizarre comments Possible Chronic Rectal Bleeding with H/O Hemorrhoids: - No hemorrhoids appreciated on rectal exam performed by Dr. Vale -- Stool brown and heme negative - Hemoglobin stable - GI consultation - outpatient colonoscopy if family wishes -- Discussed with patient who did not appear to understand and gave bizarre answer of "its like a cold that never goes away" - was discussed with family per Dr. Vale E. Coli UTI Resistant to Bactrim: - D/C Ceftriaxone and start Keflex 500 mg BID - DAY #3 R Shoulder Pain: No complaints today - Outpatient follow-up if needed HLD: - Crestor 5 mg daily DVT Prophylaxis: SARAHY/SCD Code Status: FULL RESUSCITATION Disposition: - From home with and daughter support - PT recommendations for home with 24 hour care and home PT services - Pending [facility] set-up possible D/C tomorrow Continued [facility] stay due to: other ([facility] set-up) Discharge planning: home with home health
[2016-10-23 15:47] VITALS: BP 115/58; PULSE 67; TEMP 36.7; O2SAT 93
[2016-10-23] MEDS: CEPHALEXIN MONOHYDRATE 500 MG CAP PO SCH (20:11)
[2016-10-23 22:12] VITALS: BP 143/72; PULSE 67; TEMP 36.7; O2SAT 92
[2016-10-24 07:19] LABS: HEMATOCRIT 33.8 % (37-47); MEAN CELL VOLUME 88.9 fL (80-100); MEAN CORPUSCULAR HEMOGLOBIN 28.7 pg (25-34); MEAN CORPUSCULAR HGB CONC 32.2 g/dl (32-36); MEAN PLATELET VOLUME 8.5 fL (7.4-10.4); PLATELET COUNT 269 K/uL (130-400); WHITE BLOOD COUNT 5.66 K/uL (4.8-10.8)
[2016-10-24 07:49] VITALS: BP 163/68; PULSE 72; TEMP 36.7; O2SAT 92
[2016-10-24 07:55] LABS: BUN/CREATININE RATIO 22.4 (10-20); CALCIUM 8.1 mg/dl (8.5-10.1); CREATININE 0.41 mg/dl (0.60-1.20); POTASSIUM 3.5 mmol/L (3.5-5.1)
[2016-10-24] MEDS: ROSUVASTATIN CALCIUM 5 MG TAB PO SCH (08:27)
[2016-10-24] MEDS: CEPHALEXIN MONOHYDRATE 500 MG CAP PO SCH (08:27)
[2016-10-24] MEDS ORDERED: KFL500 PO (13:47)
--- NOTE | 2016-10-24 13:50 | Discharge Instructions ---
Discharge Instructions Date of Service Oct 24, 2016. Admission Reason for Admission: Altered Mental Status, Uti Discharge Discharge Diagnosis / Problem: Altered mental status, urinary tract infection Discharge Goals Goal(s): Decrease discomfort, Improve function, Increase independence, Improve disease control, Learn about illness, Diagnostic testing, Therapeutic intervention Activity Recommendations Activity Limitations: resume your previous activity Exercise/Sports Limitations: none Shower/Bathe: no limitations Instructions / Follow-Up Instructions / Follow-Up Patient to be discharged home with home health Please continue to take antibiotic keflex 500 mg tablet twice a day for 5 more days If worsening fevers, pain/urning on urination, worsening confusion please report to ER . Current Hospital Diet Patient's current hospital diet: Regular Diet Discharge Diet Recommended Diet: Regular Diet Pending Studies Studies pending at discharge: no Medical Emergencies . Who to Call and When: Medical Emergencies: If at any time you feel your situation is an emergency, please call 911 immediately. . Non-Emergent Contact Non-Emergency issues call your: Primary Care Provider Call Non-Emergent contact if: you have a fever, your pain is worsening . . "Provider Documentation" section prepared by Roosevelt Hanna. . VTE Core Measure Inpt VTE Proph given/why not?: SCD's
[2016-10-24 14:08] VITALS: BP 163/68; PULSE 72; TEMP 36.7; O2SAT 92
--- NOTE | 2016-10-24 14:47 | Discharge Summary ---
Discharge Summary Date of Service Oct 24, 2016. Discharge Summary Admission Date: Oct 21, 2016 at 19:56 Discharge Date: Oct 24, 2016 Discharge Disposition: Home with services Principal Diagnosis: Metabolic encephalopathy, urinary tract infection Medication Reconciliation New Medications: Cephalexin Monohydrate (Cephalexin) 500 Mg Cap 500 MG PO BID for 5 Days, #10 CAP Continued Medications: Rosuvastatin Calcium (Crestor) 5 Mg Tab 5 MG PO DAILY, TAB Discharge Exam Review of Systems: Constitutional: No fever, No chills, No sweats, No weakness Respiratory: No cough, No sputum, No wheezing, No shortness of breath, No dyspnea on exertion Cardiovascular: No chest pain, No orthopnea, No PND, No edema, No claudication Abdomen: No pain, No nausea, No vomiting, No diarrhea Musculoskeletal: No joint pain, No muscle pain Genitourinary - Female: No dysuria, No urinary frequency, No urinary urgency , No urinary incontinence Neurologic: + memory loss, No paralysis, No weakness, No numbness/tingling Psychiatric: No depression symptoms, No anhedonism, No anxiety Endocrine: No fatigue, No excessive thirst Integumentary: No rash, No itch Physical Exam: General Appearance: WD/WN, no apparent distress Eyes: normal inspection, PERRL, EOMI, sclerae normal Neck: supple, no adenopathy, thyroid normal, no JVD Respiratory/Chest: chest non-tender, lungs clear, normal breath sounds, no respiratory distress Cardiovascular: regular rate, rhythm, no edema, no gallop, no JVD Abdomen / GI: normal bowel sounds, non tender, soft, no organomegaly Extremities: normal inspection, no calf tenderness, normal capillary refill , no pedal edema Neurologic/Psychiatric: no motor/sensory deficits, alert, normal mood/affect , normal reflexes Skin: normal color, warm/dry, no rash Hospital Course Metabolic Encephalopathy 2/2 UTI Likely Superimposed on Dementia -Resolved at baseline per who was contacted -Cont antibiotics keflex 500 mg PO BID on DC for 5 more days Possible Chronic Rectal Bleeding with H/O Hemorrhoids: - Hemoglobin stable and heme neg - GI consultation - outpatient colonoscopy if family wishes, no further evaluation at this time E. Coli UTI - D/C Ceftriaxone and start Keflex 500 mg BID for 5 more days on discharge HLD: - Stable, cont crestor 5 mg daily DVT Prophylaxis: SARAHY/SCD Code Status: FULL RESUSCITATION Total Time Spent: Greater than 30 minutes This includes examination of the patient, discharge planning, medication reconciliation, and communication with other providers. Discharge Instructions Please refer to the electronic Patient Visit Report (Discharge Instructions) for additional information.
== END 2016-10-24 14:50 | disposition home health service (06) | DRG 689 ==
LOC: C.EDB 17:06 → C.MS4W 19:56 → ENRESERV 20:10
PROVIDERS: ADMIT Internal Medicine; ATTEND Hospitalist
DX: N39.0 Urinary tract infection, site not specified (principal); G93.41 Metabolic encephalopathy; K62.5 Hemorrhage of anus and rectum; I10 Essential (primary) hypertension; B96.20 Unspecified Escherichia coli [E. coli] as the cause of diseases classified elsewhere; R94.6 Abnormal results of thyroid function studies; E78.5 Hyperlipidemia, unspecified; F03.90 Unspecified dementia, unspecified severity, without behavioral disturbance, psychotic disturbance, mood disturbance, and anxiety; M25.511 Pain in right shoulder; Z87.19 Personal history of other diseases of the digestive system; Z23 Encounter for immunization; Z79.899 Other long term (current) drug therapy